=== PATIENT | male | born 1950 | race Caucasian/White ===

== ENCOUNTER 2020-10-22 18:06 | Inpatient (IN) | payer BC, OTHER ==
[~2020-10-22] VITALS: Ht 182.9 cm; Wt 99.3 kg
[2020-10-22] MEDS ORDERED: IV NS 0.9% 1,000 ML BAG IV ONE (18:30)
[2020-10-22 19:06] LABS: BASOPHILS % (AUTO) 0.4 % (0.0-2.0); HEMATOCRIT 40 % (39-51); HEMOGLOBIN 13.1 g/dL (13.5-17.5); LYMPHOCYTES # (AUTO) 2.1 K/uL (0.8-4.8); LYMPHOCYTES % (AUTO) 17.8 % (20.0-44.0); MEAN CORPUSCULAR HGB CONC 33 g/dl (31.0-36.0); MEAN CORPUSCULAR VOLUME 88 fL (80-96); MONOCYTES # (AUTO) 1.6 K/uL (0.1-1.30); MONOCYTES % (AUTO) 13.5 % (2.0-12.0); NEUTROPHILS # (AUTO) 7.8 K/uL (1.8-8.9); NEUTROPHILS % (AUTO) 67.3 % (43.0-81.0); PLATELET COUNT (AUTO) 186 K/uL (150-450); RED BLOOD CELL COUNT(AUTO) 4.51 MIL/uL (4.5-6.0); WHITE BLOOD COUNT (AUTO) 11.6 K/uL (4.3-11.0)
[2020-10-22 19:41] LABS: CALCIUM, SERUM 8.2 mg/dL (8.5-10.1); CARBON DIOXIDE 29 mmol/L (21-32); CHLORIDE 104 mmol/L (98-107); CREATININE 0.6 mg/dL (0.6-1.3); GLUCOSE 98 mg/dL (74-106); POTASSIUM 3.9 mmol/L (3.5-5.1); SODIUM SERUM 139 mmol/L (136-145); UREA NITROGEN, BLOOD 27 mg/dL (7-18)
[2020-10-22 19:46] LABS: ALANINE AMINOTRANSFERASE 41 U/L (12-78); ALBUMIN 2.7 g/dL (3.4-5.0); ALKALINE PHOSPHATASE 144 U/L (46-116); ASPARTATE AMINOTRANSFERASE 56 U/L (15-37); BILIRUBIN,DIRECT 0.4 mg/dL (0.0-0.2); LIPASE 65 U/L (73-393); TOTAL PROTEIN, SERUM 6.4 g/dL (6.4-8.2)
[2020-10-22] MEDS ORDERED: IOHEXOL-300 100 ML VIAL IV ONE (19:48)
[2020-10-22] MEDS ORDERED: IV NS 0.9% 250 ML IV ONE (19:48)
[2020-10-22] MEDS ORDERED: CT SWABBABLE VALVE TRANS SET 1 EA INFUS.SET MC ONE (19:48)
--- NOTE | 2020-10-22 19:50 | NUR ---
CALLED [facility], PAGED DR BROWN
[2020-10-22] MEDS ORDERED: PIPERACILLIN /TAZOBACTAM 3.375 G in IV D5W 50 ML IV ONE (20:00)
[2020-10-22] MEDS ORDERED: IV NS 0.9% 1,000 ML IV ONE (20:30)
[2020-10-22] MEDS ORDERED: ACETAMINOPHEN 650 MG/SUPP.RECT RC PRN (20:30)
[2020-10-22] MEDS ORDERED: ONDANSETRON HCL/PF 4 MG/2 ML VIAL IVP PRN (20:30)
[2020-10-22] MEDS ORDERED: Z GUARD REMEDY 2 OZ OINT TP PRN (20:30)
[2020-10-22] MEDS ORDERED: PIPERACILLIN /TAZOBACTAM 3.375 G VIAL IV ONE (21:16)
--- NOTE | 2020-10-22 22:20 | NUR ---
unable to give report at this time, will call back
[2020-10-22] MEDS: ENOXAPARIN SODIUM 40 MG/0.4 ML DISP.SYRIN SQ SCH (22:30)
--- NOTE | 2020-10-22 22:31 | NUR ---
, herman [phone]
[2020-10-22] MEDS ORDERED: ENOXAPARIN SODIUM 40 MG/0.4 ML DISP.SYRIN SQ ONE (22:33)
--- NOTE | 2020-10-22 22:40 | NUR ---
ACCOUNT GENERAL MANAGER NOTE RECEIVED PATIENT VIA [place]. PATIENT IS ON RA. BREATHING NORMAL NO SOB NOTED. RESPIRATIONS ARE EVEN AND UNLABORED AT REST. NO C/O PAIN AT THIS TIME. NO APPARENT DISTRESS. IV ACCESS IN RAC#18. INITIAL PHYSICAL ASSESSMENT COMPLETED AT THIS TIME. SKIN ASSESSMENT COMPLETE, PATIENT NOTED WITH MULTIPLE SKIN ISSUES, SEE FLOW SHEET. MENTALLY IMPAIRED TEACHER OBTAINED VITALS AND COMPLETED BELONGING LIST. BED IS LOW AND LOCKED, HOB ELEVATED IN SEMI FOWLERS, SIDE RAILS UP X2, CALL LIGHT WITHIN REACH. WILL CONT TO MONITOR FOR ROSA MARIA. Addendum: 10/23/20 at 0331 by ANDREA JAMES RN TIME 1017
--- NOTE | 2020-10-22 22:46 | NUR ---
report given to trung lobo. pt transported in stable condition per acls protocol
[2020-10-22 23:00] VITALS: BP 110/63
[2020-10-23] MEDS ORDERED: PIPERACILLIN /TAZOBACTAM 3.375 G in IV D5W 50 ML IV SCH
[2020-10-23] MEDS ORDERED: PIPERACILLIN /TAZOBACTAM 3.375 G VIAL IV ONE ×2 (00:02→06:15)
[2020-10-23] MEDS: IV 1/2NS 1000 ML 1,000 ML IV PRN ×2 (00:03→18:23)
[2020-10-23] MEDS: ZOSYN IVPB 3.375 G in IV D5W 50ml IV SCH ×2 (00:03→06:16)
[2020-10-23 00:43] LABS: BILIRUBIN,URINE Negative (NEGATIVE); COLOR,URINE YELLOW (YELLOW); LEUKOCYTE ESTERASE ,URINE Negative (NEGATIVE); NITRITE, URINE Negative (NEGATIVE); PROTEIN,URINE Negative (NEGATIVE); UGLUCOSE Negative (NEGATIVE); UROBILINOGEN,URINE 0.2 EU/dL (0.2)
[2020-10-23 01:00] VITALS: BP 114/66
[2020-10-23 05:00] VITALS: BP 107/62
[2020-10-23 06:56] LABS: BASOPHILS % (AUTO) 0.3 % (0.0-2.0); EOSINOPHILS % (AUTO) 1.5 % (0.0-6.0); HEMATOCRIT 38 % (39-51); HEMOGLOBIN 12.7 g/dL (13.5-17.5); LYMPHOCYTES # (AUTO) 1.6 K/uL (0.8-4.8); LYMPHOCYTES % (AUTO) 17.4 % (20.0-44.0); MEAN CORPUSCULAR HGB CONC 33 g/dl (31.0-36.0); MEAN CORPUSCULAR VOLUME 89 fL (80-96); MONOCYTES # (AUTO) 1.1 K/uL (0.1-1.30); MONOCYTES % (AUTO) 12.1 % (2.0-12.0); NEUTROPHILS # (AUTO) 6.5 K/uL (1.8-8.9); NEUTROPHILS % (AUTO) 68.7 % (43.0-81.0); PLATELET COUNT (AUTO) 159 K/uL (150-450); RED BLOOD CELL COUNT(AUTO) 4.29 MIL/uL (4.5-6.0); WHITE BLOOD COUNT (AUTO) 9.4 K/uL (4.3-11.0)
--- NOTE | 2020-10-23 07:21 | NUR ---
RN NOTES No changes noted during shift. on RA. breathing normal no SOB noted. Respiration even non labored. Skin warn and dry to touch. Vital signs remained WNL. RT arm IV intact fluid running as ordered. Denies any pain or discomfort. All safety measures in place, call light within reach. endorse to AM nurse for aliza.
[2020-10-23 07:29] LABS: ALBUMIN 2.6 g/dL (3.4-5.0); BILIRUBIN,TOTAL 1.1 mg/dL (0.2-1.0); CREATININE 0.6 mg/dL (0.6-1.3); MAGNESIUM 2.2 mg/dL (1.8-2.4); PHOSPHORUS 3.6 mg/dL (2.5-4.9); POTASSIUM 3.6 mmol/L (3.5-5.1); TOTAL PROTEIN, SERUM 6.2 g/dL (6.4-8.2)
--- NOTE | 2020-10-23 07:30 | NUR ---
RN OPENING NOTES Patient is alert and oriented. Breathing even and unlabored, patient is on room air with 02 saturation of 95%. No c/o pain or discomfort. Patient is NPO per report. Iv fluids running to right ac 18 gauze, yu well. Will continue to monitor. Call light with in reach.
[2020-10-23 07:59] LABS: THYROID STIMULATING HORMONE 2.452 uIU/mL (0.358-3.74)
[2020-10-23 08:00] VITALS: BP 99/62
[2020-10-23] MEDS ORDERED: CARB1TAB24 PO (08:46)
[2020-10-23] MEDS ORDERED: TAMS-12 PO (08:46)
[2020-10-23] MEDS ORDERED: RIVA10TA PO (09:03)
[2020-10-23] MEDS: PANTOPRAZOLE 40 MG VIAL IV SCH (09:19)
--- NOTE | 2020-10-23 09:43 | NUR ---
WOUND CARE CONSULT: REVIEWED CHART, NURSING DOCUMENTATION AND PHOTOS WHICH INDICATE AREAS OF DISCOLORATION AND SCARRING TO SACRUM, PRESENT ON ADMISSION. RECOMMENDATIONS MADE FOR SKIN PROTECTION AND DISCUSSED WITH NURSING STAFF. MD IN AGREEMENT WITH PLAN OF CARE.
[2020-10-23] MEDS: PIPERACILLIN /TAZOBACTAM 3.375 G in IV D5W 100 ML IV SCH ×2 (13:34→22:27)
[2020-10-23 16:00] VITALS: BP 114/70
--- NOTE | 2020-10-23 19:33 | NUR ---
RN CLOSING NOTES Patient is alert and oriented. Breathing even and unlabored, patient is on room air with 02 saturation of 98%. No c/o pain or discomfort. HIDA scan done with positive results. Per WAREHOUSE SPECIALIST patient will not be having surgery today due to being on xarelto at [facility]. Per patient last xarelot taken on 10/21/20 in pm. WAREHOUSE SPECIALIST kerri ordered diet for patient. Iv fluids running to right ac 18 gauze, yu well. Will continue to monitor. Call light with in reach.Endorsed to next shift for aliza.
[2020-10-23 21:00] VITALS: BP 102/59
[2020-10-23] MEDS: TAMSULOSIN 0.4 MG CAP.SR.24H PO SCH (22:27)
[2020-10-23] MEDS: ENOXAPARIN SODIUM 40 MG/0.4 ML DISP.SYRIN SQ SCH (22:55)
[2020-10-24 05:00] VITALS: BP 108/62
[2020-10-24] MEDS: PIPERACILLIN /TAZOBACTAM 3.375 G in IV D5W 100 ML IV SCH ×3 (06:35→20:46)
[2020-10-24] MEDS: IV 1/2NS 1000 ML 1,000 ML IV PRN ×2 (06:43→08:57)
[2020-10-24 07:18] LABS: BASOPHILS % (AUTO) 0.5 % (0.0-2.0); HEMATOCRIT 37 % (39-51); HEMOGLOBIN 12.3 g/dL (13.5-17.5); LYMPHOCYTES # (AUTO) 1.5 K/uL (0.8-4.8); LYMPHOCYTES % (AUTO) 17.1 % (20.0-44.0); MEAN CORPUSCULAR HGB CONC 34 g/dl (31.0-36.0); MEAN CORPUSCULAR VOLUME 89 fL (80-96); MONOCYTES % (AUTO) 11.4 % (2.0-12.0); PLATELET COUNT (AUTO) 189 K/uL (150-450); RED BLOOD CELL COUNT(AUTO) 4.12 MIL/uL (4.5-6.0); WHITE BLOOD COUNT (AUTO) 8.6 K/uL (4.3-11.0)
[2020-10-24 07:26] LABS: CALCIUM, SERUM 7.9 mg/dL (8.5-10.1); CREATININE 0.6 mg/dL (0.6-1.3); POTASSIUM 3.6 mmol/L (3.5-5.1)
--- NOTE | 2020-10-24 07:30 | NUR ---
RN NOTE PATIENT AWAKE IN BED ALERT AND ORIENTED X4, ABLE TO VERBALIZE NEEDS, ON ROOM AIR O2 SAT OF 98%, ON LOW FAT DIET/LOW CHOLESTEROL, WITH RIGHT AC 1/2 NS @75CC/HR PATENT FLUSHING WELL. BED WHEELS LOCK, SAFETY MEASURES OBSERVED, BED ALARM ON, CALL LIGHT WITHIN REACH, WILL CONTINUE TO MONITOR.
--- NOTE | 2020-10-24 07:56 | NUR ---
RN NOTE RECEIVE PATIENT FROM ER VIA [facility], AMBULATED FROM THE [place] TO THE BED STEADY GAIT, ADMITTING PATIENT AT THIS TIME, BODY CHECK DONE, SKIN INTACT. Addendum: 10/24/20 at 0758 by DRAKE CHEATHAM RN ERROR WRONG PATIENT
--- NOTE | 2020-10-24 07:58 | NUR ---
RN NOTE PATIENT AM LAB BLOOD GLUCOSE LEVEL OF 70, RE CHECK BLOOD GLUCOSE LEVEL USING ACCU CHECK 86. PATIENT RESPONSIVE VTS WNL, WILL CONTINUE TO MONITOR.
--- NOTE | 2020-10-24 08:00 | NUR ---
RN NOTE BREAKFAST TRAY AT BEDSIDE, ASSISTED PATIENT TO EAT.
[2020-10-24] MEDS: PANTOPRAZOLE 40 MG VIAL IV SCH (08:55)
--- NOTE | 2020-10-24 09:26 | NUR ---
RN NOTE PATIENT SEEN BY DR. DURAN, UPDATED MD REGARDING PATIENT CURRENT CONDITION, NO NEW ORDERS AT THIS TIME.
[2020-10-24] MEDS: ENOXAPARIN SODIUM 100 MG/ML DISP.SYRIN SQ SCH ×2 (10:45→20:48)
[2020-10-24 13:00] VITALS: BP 111/67
--- NOTE | 2020-10-24 18:39 | NUR ---
RN NOTE PATIENT AWAKE IN BED ALERT AND ORIENTED X4, ABLE TO VERBALIZE NEEDS, ON ROOM AIR O2 SAT OF 98%, ON LOW FAT DIET/LOW CHOLESTEROL, WITH RIGHT AC 1/2 NS @75CC/HR PATENT FLUSHING WELL. NPO AT THIS TIME ORDERED, HOLD LOVENOX, BED WHEELS LOCK, SAFETY MEASURES OBSERVED, BED ALARM ON, CALL LIGHT WITHIN REACH, WILL CONTINUE TO MONITOR. WILL ENDORSE TO NOC SHIFT.
--- NOTE | 2020-10-24 19:00 | NUR ---
RN NOTE RECEIVED PATIENT IN BED, AO X 4, IN NO S/SX OF ACUTE DISTRESS AT THIS TIME BREATHING EVEN AND UNLABORED, SATURATION AT 96% ON ROOM AIR, HR IS 75. NOTED IV SITE AT R WRIST 18G, PATENT AND FLUSHING WELL, NO S/S OF INFECTION OR INFILTRATION, WITH IV FLUID OF NS INFUSING AT 75 ML/HR. PATIENT SCHEDULE FOR GALL BLADDER SURGERY IN AM, NPO STATUS MAINTAINED. SAFETY MEASURES IMPLEMENTED. PATIENT BED ALARM IS ON. HEAD OF BED ELEVATED. BED IS LOCKED, IN LOWEST POSITION AND SIDE RAILS UP. CALL LIGHT WITHIN REACH OF THE PATIENT. WILL CONTINUE TO MONITOR AND REASSESS FOR ANY CHANGES. Addendum: 10/25/20 at 0407 by LUNA DECKER RN IV FLUID 1/2 NS AT 75 ML/HR
[2020-10-24 20:00] VITALS: BP 151/80
[2020-10-24] MEDS: TAMSULOSIN 0.4 MG CAP.SR.24H PO SCH (21:00)
[2020-10-25] MEDS: PIPERACILLIN /TAZOBACTAM 3.375 G in IV D5W 100 ML IV SCH ×3 (05:27→21:21)
--- NOTE | 2020-10-25 07:07 | NUR ---
RN NOTE PATIENT AWAKE IN BED ALERT AND ORIENTED X4, ABLE TO VERBALIZE NEEDS, ON ROOM AIR O2 SAT OF 97%, ON LOW FAT DIET/LOW CHOLESTEROL, WITH RIGHT AC 1/2 NS @75CC/HR PATENT FLUSHING WELL. NPO AT THIS TIME ORDERED, WILL CLARIFY NPO ORDER. BED WHEELS LOCK, SAFETY MEASURES OBSERVED, BED ALARM ON, CALL LIGHT WITHIN REACH, WILL CONTINUE TO MONITOR..
[2020-10-25 08:00] VITALS: BP 101/62
[2020-10-25] MEDS: IV 1/2NS 1000 ML 1,000 ML IV PRN ×2 (08:12→23:08)
[2020-10-25] MEDS: PANTOPRAZOLE 40 MG TABLET.DR PO SCH (08:39)
--- NOTE | 2020-10-25 08:50 | NUR ---
RN NOTE FOLLOW UP WITH REMELT WORKER CORAL REGARDING SURGERY SCHEDULE, PER REMELT WORKER CORAL , DR. BARNHART WILL DECIDE IF SURGERY WILL BE DONE TODAY , KEEP PATIENT ON NPO AND HOLD LOVENOX PER REMELT WORKER CORAL..
[2020-10-25] MEDS: ENOXAPARIN SODIUM 100 MG/ML DISP.SYRIN SQ SCH ×2 (08:54→21:22)
--- NOTE | 2020-10-25 09:52 | NUR ---
RN NOTES INFORMED AND VARIED PATIENT REGARDING SURGERY OF LAPAROSCOPIC CHOLECYSTECTOMY, POSSIBLE CHOLANGIOGRAM, AND POSSIBLE LIVER BIOPSY. CONSENT VARIED WITH PATIENT AND PLACED IN FOLDER.
[2020-10-25 10:07] LABS: BASOPHILS % (AUTO) 0.5 % (0.0-2.0); EOSINOPHILS % (AUTO) 2.3 % (0.0-6.0); HEMATOCRIT 38 % (39-51); HEMOGLOBIN 12.5 g/dL (13.5-17.5); LYMPHOCYTES # (AUTO) 1.5 K/uL (0.8-4.8); LYMPHOCYTES % (AUTO) 18.6 % (20.0-44.0); MEAN CORPUSCULAR HGB CONC 33 g/dl (31.0-36.0); MEAN CORPUSCULAR VOLUME 89 fL (80-96); MONOCYTES # (AUTO) 0.9 K/uL (0.1-1.30); MONOCYTES % (AUTO) 10.5 % (2.0-12.0); NEUTROPHILS # (AUTO) 5.6 K/uL (1.8-8.9); NEUTROPHILS % (AUTO) 68.1 % (43.0-81.0); PLATELET COUNT (AUTO) 208 K/uL (150-450); WHITE BLOOD COUNT (AUTO) 8.2 K/uL (4.3-11.0)
[2020-10-25 10:13] LABS: CALCIUM, SERUM 8.5 mg/dL (8.5-10.1); CREATININE 0.6 mg/dL (0.6-1.3); POTASSIUM 3.9 mmol/L (3.5-5.1)
[2020-10-25] MEDS ORDERED: ANESTHESIA TRAY IN PYXIS 1 EA TRAY MC ONE (10:42)
[2020-10-25] MEDS ORDERED: LIDOCAINE 1% INJ 50 ML MDV IJ ONE (10:42)
[2020-10-25] MEDS ORDERED: BUPIVACAINE MPF 0.5% W/EPI INJ 30 ML VIAL ONE (10:42)
[2020-10-25] MEDS ORDERED: ROCURONIUM BROMIDE 50 MG/5 ML ONE ×2 (10:46→10:56)
[2020-10-25] MEDS ORDERED: HYDROMORPHONE INJ 2 MG/ML DISP.SYRIN ONE (10:46)
[2020-10-25] MEDS: CARBIDOPA/LEVODOPA 25/250 MG 1 UDTAB PO SCH ×4 (11:00→21:00)
--- NOTE | 2020-10-25 11:01 | NUR ---
RN NOTE PATIENT PICKED UP FOR SURGERY, VTS WNL, PATIENT HAS BEEN NPO SINCE 10/24/20 1800, LOVENOX ON HOLD ORDERED. PRE OP CHECKLIST DONE, UNABLE SANTANA ADMINISTER CARVIDOPA AT THIS TIME.
[2020-10-25] MEDS ORDERED: DESFLURANE 240 ML BOTTLE IH ONE (12:33)
[2020-10-25] MEDS ORDERED: HYDROMORPHONE 1 MG/1 ML DISP.SYRIN ONE ×2 (13:23→13:46)
--- NOTE | 2020-10-25 14:31 | NUR ---
RN NOTES RECEIVED PATIENT FROM OR, POST-OP SURGERY. RECIEVED RESTING AND RESPONSIVE. PATIENT BREATHING EVEN AND UNLABORED, NO SOB NOTED. PATIENT CURRENTLY ON 3L/MIN NASAL CANULA. VITALS BP: 114/71, HR:64, RR: 20, O2 SATURATION: 99%. PATIENT NOTED WITH TIMOTHY-CALVILLO DRAIN. DRAINAGE NOTED. START ON CLEAR LIQUID WHEN MORE AWAKE, ASPIRATION PRECAUTION PER MD. HOB ELEVATED, CALL LIGHT WITHIN REACH.
--- NOTE | 2020-10-25 15:55 | NUR ---
RN NOTE PATIENT ASLEEP BUT ABLE TO BE WAKEN UP, DROWSY AT THIS TIME, CARBIDOPA/LEVODOPA NOT GIVEN, MD AWARE.
[2020-10-25] MEDS: MORPHINE SULFATE INJ 2 MG/ML DISP.SYRIN IV PRN ×2 (18:24→23:07)
--- NOTE | 2020-10-25 18:56 | NUR ---
RN NOTE PATIENT ALERT ANDD ORIENTED X4. REFUSED CARVIDOPA/LEVODOPA, CALLED [facility] TO NOTIFY DR DURAN, EPIC WAS NOT ABLE TO REACH MD.
--- NOTE | 2020-10-25 19:03 | NUR ---
RN NOTE PATIENT AWAKE IN BED ALERT AND ORIENTED X4, ABLE TO VERBALIZE NEEDS, ON O2 VIA NC AT 3LPM SAT OF 97%, S/P LAPAROSCOPIC CHOLECYSTECTOMY, RIGHT ABDOMEN SURGICAL SITE WITH TIMOTHY-PRAT DRAIN, 100 CC RED BLOODY WITH RIGHT AC 1/2 NS @75CC/HR PATENT FLUSHING WELL. ASPIRATION PRECAUTION BED WHEELS LOCK, SAFETY MEASURES OBSERVED, BED ALARM ON, CALL LIGHT WITHIN REACH, WILL CONTINUE TO MONITOR. WILL ENDORSE TO NOC SHIFT.
--- NOTE | 2020-10-25 19:30 | NUR ---
RN OPENING NOTE PATIENT IN BED, EYES CLOSED, EASILY AWAKENED. PATIENT IS A/O X 4 ABLE TO MAKE NEEDS KNOWN. RECEIVED WITH 3 L OF O2 SUPPLEMENTATION. RN REPORTS THAT PATIENT STATES HE IS NOT COMFORTABLE WITH DRINKING PO MEDICATIONS AT THIS TIME. PATIENT HAS A R WRIST 18 G 1/2 NS RUNNING AT 75 ML/HR. PATIENT IS OBSERVED TO HAVE A REBECA DRAIN WITH SEROSANGUINEOUS DRAIN. SAFETY MEASURES IN PLACE: BED LOCKED AND IN LOWEST POSITION, CALL LIGHT WITHIN REACH, SIDE RAILS UP. WILL MONITOR PATIENT CLOSELY.
[2020-10-25 20:00] VITALS: BP 128/65
--- NOTE | 2020-10-25 21:00 | NUR ---
RN NOTE PATIENT NOT COMFORTABLE TAKING PO MEDS. 2100 AND 2200 PO MEDS NOT GIVEN.
[2020-10-25] MEDS: TAMSULOSIN 0.4 MG CAP.SR.24H PO SCH (21:28)
--- NOTE | 2020-10-25 23:10 | NUR ---
RN NOTE PATIENT GIVEN MORPHINE FOR R ABDOMINAL PAIN 11/22
--- NOTE | 2020-10-26 | NUR ---
RN NOTE PATIENT STATES HE WANTS TO TRY DRINKING SOME WATER, EVALUATED PATIENT'S SWALLOWING ABILITY, NO COUGH AFTER THE SIP AND PATIENT ABLE TO CLENCH TEETH. PATIENT VERBALIZES THAT "I AM COMFORTABLE WITH SWALLOWING, MY THROAT IS FEELING BETTER". PATIENT PUT BACK ON CLEAR LIQUID DIET. CHARGE NURSE AWARE.
[2020-10-26 04:00] VITALS: BP 100/58
[2020-10-26] MEDS: PIPERACILLIN /TAZOBACTAM 3.375 G in IV D5W 100 ML IV SCH ×3 (04:49→21:19)
[2020-10-26] MEDS: CARBIDOPA/LEVODOPA 25/250 MG 1 UDTAB PO SCH ×5 (06:17→21:19)
--- NOTE | 2020-10-26 06:55 | NUR ---
RN CLOSING NOTE PATIENT IN BED, AWAKE. PATIENT IS A/O X 4 ABLE TO MAKE NEEDS KNOWN. PATIENT NOW ON 2L OF O2 TOLERATING WELL AND COMFORTABLE. PATIENT HAS A R WRIST 18 G WITH ONGOING 1/2 NS AT 75 ML/HR. PATIENT IS OBSERVED TO HAVE A REBECA DRAIN WITH CLEAR/PINK DRAINAGE, 90 ML DRAINED DURING THE SHIFT. SAFETY MEASURES IN PLACE: BED LOCKED AND IN LOWEST POSITION, CALL LIGHT WITHIN REACH, SIDE RAILS UP. WILL ENDORSE TO DAY SHIFT NURSE FOR ROSA MARIA.
[2020-10-26 07:17] LABS: BASOPHILS % (AUTO) 0.1 % (0.0-2.0); HEMATOCRIT 37 % (39-51); HEMOGLOBIN 12.6 g/dL (13.5-17.5); LYMPHOCYTES # (AUTO) 1.3 K/uL (0.8-4.8); LYMPHOCYTES % (AUTO) 11.8 % (20.0-44.0); MEAN CORPUSCULAR HGB CONC 34 g/dl (31.0-36.0); MEAN CORPUSCULAR VOLUME 89 fL (80-96); MONOCYTES # (AUTO) 0.9 K/uL (0.1-1.30); MONOCYTES % (AUTO) 8.6 % (2.0-12.0); NEUTROPHILS # (AUTO) 8.5 K/uL (1.8-8.9); NEUTROPHILS % (AUTO) 79.5 % (43.0-81.0); PLATELET COUNT (AUTO) 239 K/uL (150-450); WHITE BLOOD COUNT (AUTO) 10.7 K/uL (4.3-11.0)
--- NOTE | 2020-10-26 07:20 | NUR ---
RN NOTE PATIENT AWAKE IN BED ALERT AND ORIENTED X3, ABLE TO VERBALIZE NEEDS, ON O2 VIA NC AT 3LPM SAT OF 97%, S/P LAPAROSCOPIC CHOLECYSTECTOMY, RIGHT ABDOMEN SURGICAL SITE WITH TIMOTHY-PRAT DRAIN, 100 CC RED BLOODY WITH RIGHT AC 1/2 NS @75CC/HR PATENT FLUSHING WELL. ON CLEAR LIQUID DIET TOLERATING WELL, ASPIRATION PRECAUTION BED WHEELS LOCK, SAFETY MEASURES OBSERVED, BED ALARM ON, CALL LIGHT WITHIN REACH, WILL CONTINUE TO MONITOR..
[2020-10-26 07:41] LABS: CALCIUM, SERUM 8.5 mg/dL (8.5-10.1); CREATININE 0.7 mg/dL (0.6-1.3); POTASSIUM 4.1 mmol/L (3.5-5.1)
[2020-10-26 08:00] VITALS: BP 108/61
[2020-10-26] MEDS: PANTOPRAZOLE 40 MG TABLET.DR PO SCH (08:06)
--- NOTE | 2020-10-26 08:33 | NUR ---
RN NOTE PATIENT SEEN BY DR. DURAN, ANNA BRAN POST OP, MD AWARE REGARDING PATIENT CURRENT CONDITION.
[2020-10-26] MEDS: ENOXAPARIN SODIUM 100 MG/ML DISP.SYRIN SQ SCH ×2 (08:34→21:32)
[2020-10-26] MEDS: IV 1/2NS 1000 ML 1,000 ML IV PRN (11:56)
--- NOTE | 2020-10-26 14:15 | NUR ---
RN NOTE PATIENT SEEN BY HUMAN PERFORMANCE PROFESSOR CORAL COVERING FOR DR. BARNHART ABDOMINAL DRESSING CHANGED DONE AT BEDSIDE. HUMAN PERFORMANCE PROFESSOR OK TO START ON SOFT DIET AND START ON TRAMADOL 50 MG PRN Q6H FOR BREAKTHROUGH PAIN.
[2020-10-26] MEDS ORDERED: TRAMADOL HCL 50 MG TABLET PO PRN (14:30)
[2020-10-26] MEDS: RIVAROXABAN 10 MG TABLET PO SCH (17:27)
--- NOTE | 2020-10-26 18:53 | NUR ---
RN NOTE PATIENT AWAKE IN BED ALERT AND ORIENTED X3, ABLE TO VERBALIZE NEEDS, ON O2 VIA NC AT 2LPM SAT OF 97%, S/P LAPAROSCOPIC CHOLECYSTECTOMY, RIGHT ABDOMEN SURGICAL SITE WITH TIMOTHY-PRAT DRAIN, 100 CC RED BLOODY DRAINAGE WITH 2 ABDOMINAL INCISION SITE NO BLEEDING NOTED, AFEBRILE AT THIS TIME, WITH RIGHT AC 1/2 NS @75CC/HR PATENT FLUSHING WELL. ON CLEAR LIQUID DIET TOLERATING WELL, ASPIRATION PRECAUTION BED WHEELS LOCK, SAFETY MEASURES OBSERVED, BED ALARM ON, CALL LIGHT WITHIN REACH, WILL CONTINUE TO MONITOR.WILL ENDORSE TO NOC SHIFT.
[2020-10-26] MEDS: MORPHINE SULFATE INJ 2 MG/ML DISP.SYRIN IV PRN (19:34)
[2020-10-26 20:00] VITALS: BP 104/58
[2020-10-26] MEDS: TAMSULOSIN 0.4 MG CAP.SR.24H PO SCH (21:19)
[2020-10-27 04:00] VITALS: BP 95/60
[2020-10-27] MEDS: PIPERACILLIN /TAZOBACTAM 3.375 G in IV D5W 100 ML IV SCH ×3 (05:42→20:40)
[2020-10-27] MEDS: CARBIDOPA/LEVODOPA 25/250 MG 1 UDTAB PO SCH ×5 (06:01→20:40)
[2020-10-27 06:23] LABS: BASOPHILS % (AUTO) 0.6 % (0.0-2.0); EOSINOPHILS % (AUTO) 1.5 % (0.0-6.0); HEMATOCRIT 36 % (39-51); HEMOGLOBIN 12.1 g/dL (13.5-17.5); LYMPHOCYTES # (AUTO) 1.5 K/uL (0.8-4.8); LYMPHOCYTES % (AUTO) 20.4 % (20.0-44.0); MEAN CORPUSCULAR HGB CONC 34 g/dl (31.0-36.0); MEAN CORPUSCULAR VOLUME 88 fL (80-96); MONOCYTES # (AUTO) 0.9 K/uL (0.1-1.30); MONOCYTES % (AUTO) 11.3 % (2.0-12.0); NEUTROPHILS % (AUTO) 66.2 % (43.0-81.0); PLATELET COUNT (AUTO) 212 K/uL (150-450); RED BLOOD CELL COUNT(AUTO) 4.06 MIL/uL (4.5-6.0); WHITE BLOOD COUNT (AUTO) 7.6 K/uL (4.3-11.0)
[2020-10-27 06:46] LABS: CALCIUM, SERUM 8.2 mg/dL (8.5-10.1); CREATININE 0.7 mg/dL (0.6-1.3); POTASSIUM 3.6 mmol/L (3.5-5.1)
--- NOTE | 2020-10-27 07:05 | NUR ---
RN CLOSING NOTES PT REMAINS IN BED, ALL NEEDS ATTENDED. DENIES PAIN. PT REFUSED TO BE TURNED AND LINENS CHANGED, DESPITE EDUCATION OF IMPORTANCE X2. PT STILL REFUSED. AT THIS TIME, NO S/S OF DISTRESS NOTED. IN STABLE CONDITION, ALL ORDERS CARRIED OUT. SAFETY MEASURES IN PLACE. HOB ELEVATED. SIDE RAILS UP X2. BED LOCKED IN LOWEST POSITION. ENDORSED CARE TO DAY SHIFT RN FOR CONTINUATION OF CARE
--- NOTE | 2020-10-27 07:28 | NUR ---
RN OPENING NOTE Pt is asleep, arousable to stimuli, no respiratory distress, no SOB. On hydration 1/ NS 75cc/hr. Safety precautions implemented, bed locked in lowest position, call light within reach.
[2020-10-27 08:00] VITALS: BP_SYST 110; BP_DIAS 60; BP_DIAS 65
[2020-10-27] MEDS: PANTOPRAZOLE 40 MG TABLET.DR PO SCH (08:21)
[2020-10-27] MEDS: ENOXAPARIN SODIUM 100 MG/ML DISP.SYRIN SQ SCH (08:22)
--- NOTE | 2020-10-27 10:30 | NUR ---
RN NOTE Pt seen by Sx team, removed REBECA drain-pressure dressing applied. Will continue to monitor. No s/sx of bleeding noted.
--- NOTE | 2020-10-27 14:40 | NUR ---
FOLLOW UP WITH SNF ,STILL WAITING FOR AUTHORIZATION.
--- NOTE | 2020-10-27 16:14 | NUR ---
PER LORETTA GOODMAN STILL NO AUTHORIZATION WILL BE DISCHARGE TOMORROW.
[2020-10-27] MEDS: RIVAROXABAN 10 MG TABLET PO SCH (16:32)
[2020-10-27] MEDS: IV 1/2NS 1000 ML 1,000 ML IV PRN (18:11)
--- NOTE | 2020-10-27 18:45 | NUR ---
RN CLOSING NOTE Pt is A/O X 4, no respiratory distress, no SOB. On 2 L via NC satting at 94-95%. IV in place, running Hydration, all due meds given as ordered. Refused to turned and repositioned. Aware of risks and benefits. Has pressure dressing s/p REBECA drainage removal. Safety precautions implemented, bed locked in lowest position, call light within reach.
[2020-10-27 20:00] VITALS: BP 99/52
[2020-10-27] MEDS: TAMSULOSIN 0.4 MG CAP.SR.24H PO SCH (21:19)
--- NOTE | 2020-10-27 22:30 | NUR ---
RN NOTE RECEIVED REPORT FROM RN FOR CONTINUITY OF CARE. PT IN BED, AWAKE, A/OX4, DENIES ANY PAIN @THIS TIME. ON O2 @2LPM VIA NC. NO SOB. IV SITE R-WRIST #18 INTACT/PATENT, RUNNING 1/2NS @75ML/HR. PT IN NO ACUTE DISTRESS. SAFETY MEASURES IN PLACE, BED IN LOWEST LOCKED POSITION, S/R UPX2, CALL LIGHT AND TABLE WITHIN REACH. WILL CONT TO MONITOR.
--- NOTE | 2020-10-27 22:30 | NUR ---
RN NOTES, ENDORSED PATIENT TO LUZ ELENA RN FOR CONTINUATION OF CARE, PATIENT A/O WITH STABLE VITAL SINGS, NO SOB/ACUTE DISTRESS NOTED.
[2020-10-28 04:14] VITALS: BP 101/62
[2020-10-28] MEDS: PIPERACILLIN /TAZOBACTAM 3.375 G in IV D5W 100 ML IV SCH ×3 (04:17→21:09)
[2020-10-28] MEDS: PANTOPRAZOLE 40 MG TABLET.DR PO SCH (06:51)
[2020-10-28] MEDS: CARBIDOPA/LEVODOPA 25/250 MG 1 UDTAB PO SCH ×5 (06:52→21:09)
--- NOTE | 2020-10-28 07:15 | NUR ---
RN CLOSING NOTES PT RESTING IN BED, EASILY AROUSABLE TO STIMULI. A/OX4. DENIES ANY PAIN/DISCOMFORT AT THIS TIME. DENIES SOB. BREATHING EVEN/UNLABORED. IV SITE R-WRIST INTACT/PATENT. PT HAS BEEN REFUSING BEDSIDE CARE, LINEN CHANGE, OR REPOSITION. REINFORCED TEACHINGS AND SKIN PRECAUTIONS, HE VERBALIZED UNDERSTANDING, BUT CONTINUES TO REFUSE. PT IN NO ACUTE DISTRESS. ENDORSED TO NEXT SHIFT NURSE.
--- NOTE | 2020-10-28 07:30 | NUR ---
RN NOTES PT FOUND IN SEMI FOWLERS POSITION DISPLAYING NO S/S OF DISTRESS, PT ENDORSES NO PAIN AND IS BREATHING EVEN AND UNLABORED. SX SITE SHOWS NO ACTIVE BLEEDING. VSS, WILL MONITOR. SAFETY MEASURES IN PLACE BED LOCKED AND IN LOWEST POSITION, SIDE RAILS UPX2, CALL LIGHT WITHIN REACH, PT INSTRUCTED TO CALL FOR ASSISTANCE.
[2020-10-28 08:00] VITALS: BP 115/70
--- NOTE | 2020-10-28 14:19 | NUR ---
SS Consult: SS Consult requested as pt. has requested alternative placement. SW was notified by pt.s nurse, Jones that pt. does not want to return to [facility] [[id number] [place] [address]; ]. SW met with pt. bedside and pt. is A&O x 4 and makes good eye contact. Pt.s stated his mood is good and has a flat affect. Pt. seems to have shortness of breath and pauses between words. Pt. states he came to the hospital w c/o GALL STONES. The stated that he does not want to return to [facility] because they cannot address my needs. SW requested for pt. to elaborate. Pt. stated he has Hx. of Spinal Cord Injury and was seen by Neurosurgeon, Dr. Liao at the [facility]. Per pt., he was told by Dr. Liao that with enough PT he could potentially improve significantly and per pt., [facility] allegedly not provided as much therapy as he would like. CM is aware of familys request for alternative placement and has referred pt. to [facility] in [place] T# [phone] x [phone] F# [phone]. CM to f/u. LACI called and spoke with nursing who informed this SW that pt.s Dx were: Spinal Cord Injury, Paraplegia and Parkinsons Disease at time of admission. The facility also stated they provided PT intermittently from 09/07/2019-10/04/2019 and then again on 07/27/2020. The nurse could not tell me how long the period of time was in which the pt. was receiving PT. There were not OT notes, per nurse. LACI consulted with SS Director, Monse Littlejohn. no need for Neida report at this time. LACI will follow up as needed.
--- NOTE | 2020-10-28 14:50 | NUR ---
PER HUMAN RESOURCE INTERN AUTHORIZATION FROM INSURANCE STILL PENDING ,AWAITS PLACEMENT PER CM.
[2020-10-28] MEDS: RIVAROXABAN 10 MG TABLET PO SCH (17:23)
--- NOTE | 2020-10-28 19:29 | NUR ---
RN NOTE PT ENDORSED IN STABLE CONDITION FOR ROSA MARIA TO WIRE TEMPERER RN. SBAR GIVEN, ALL QUESTIONS ANSWERED.
[2020-10-28 20:00] VITALS: BP 105/54
--- NOTE | 2020-10-28 20:48 | NUR ---
RN OPENING NOTE RECD PT IN BED, PT IS A/O X4. ON 2L OF O2. NO SOB OR DISTRESS NOTED. PT ON M/S MONITORING. IV INTACT. PT DENIES PAIN. SAFETY PRECAUTIONS IN PLACE. HOB ELEVATED. SIDE RAILS UPX2 LOCKED IN LOWEST POSITION WITH BED ALARM ON. CALL LIGHT WITHIN REACH. ALL NEEDS ATTENDED AT THIS TIME. WILL CONT TO MONITOR.
[2020-10-28] MEDS: TAMSULOSIN 0.4 MG CAP.SR.24H PO SCH (21:09)
--- NOTE | 2020-10-29 00:20 | NUR ---
RN NOTE PT REFUSED BED BATH, PT REQUESTS TO SLEEP AND NOT HAVE A BED BATH UNTIL THE MORNING VERBALIZED HE WOULD LIKE TO TRY TO SLEEP
--- NOTE | 2020-10-29 00:25 | NUR ---
RN NOTE PT DOES NOT WISH TO BE TURN/REPOSITIONED AT THIS TIME, REFUSED SKIN ASSESSMENT. EXPLAINED TO PT IMPORTANCE OF CHECKING SKIN, PT INSISTS ON A LATER TIME. EDUCATED RISK AND BENEFITS TO PT IN REGARDS TO SKIN INTEGRITY, STILL REFUSES AND SAYS HE TURNS DURING THE DAY.
--- NOTE | 2020-10-29 03:59 | NUR ---
RN NOTE REPORT GIVEN TO KIMMY STOCK FOR CONTINUATION OF CARE, PT IS TO BE TRANSFERRED TO ROOM 320
[2020-10-29 04:00] VITALS: BP 115/77
[2020-10-29] MEDS: PIPERACILLIN /TAZOBACTAM 3.375 G in IV D5W 100 ML IV SCH ×2 (04:05→12:52)
--- NOTE | 2020-10-29 04:10 | NUR ---
RN NOTE PT AGREED TO LINEN CHANGE AND BED BATH ALONG WITH PT REPOSITIONED.
--- NOTE | 2020-10-29 04:31 | NUR ---
RN NOTE PT TO GO TO ROOM 328-2
--- NOTE | 2020-10-29 04:59 | NUR ---
TRANSFER NOTE PT WAS TRANSFERRED TO 3 RM 328-2 WITH ALL BELONGINGS AT BEDSIDE ACCOUNTED FOR. PT TRANSFERRED IN STABLE CONDITION GLASSES, TABLET, TABLET PEN, TRAMPOLINE TEAM COACH CORD & BLOCK, STAND, BLACK BAG, PHONE, AND PERSONAL PILLOW.
[2020-10-29 05:00] VITALS: BP 113/71
--- NOTE | 2020-10-29 05:00 | NUR ---
received from YANI alert and orientated in bed orientated to the room tv turned on per his requiste feet 3 -4 + swollen
[2020-10-29] MEDS: CARBIDOPA/LEVODOPA 25/250 MG 1 UDTAB PO SCH ×5 (06:05→21:33)
--- NOTE | 2020-10-29 07:10 | NUR ---
MS RN OPENING NOTES RECEIVED PT RESTING IN BED, PATIENT IS ALERT AND ORIENTED X 4. PATIENT DENIES ANY PAIN/DISCOMFORT AT THIS TIME. DENIES SOB. BREATHING EVEN/UNLABORED. IV SITE R-WRIST 18, INTACT/PATENT. PT HAS BEEN REFUSING BEDSIDE CARE, LINEN CHANGE, OR REPOSITION. REINFORCED TEACHINGS AND SKIN PRECAUTIONS, HE VERBALIZED UNDERSTANDING, BUT CONTINUES TO REFUSE. PT IN NO ACUTE DISTRESS. SAFETY MEASURES ENSURED WITH BED LOCKED AND AT LOWEST POSITION, CALL LIGHT AND BEDSIDE COMMODE WITHIN REACH AT ALL TIMES. WILL CONTINUE TO MONITOR PATIENT.
[2020-10-29 07:42] LABS: BASOPHILS % (AUTO) 0.3 % (0.0-2.0); EOSINOPHILS % (AUTO) 1.5 % (0.0-6.0); HEMATOCRIT 36 % (39-51); HEMOGLOBIN 12.3 g/dL (13.5-17.5); LYMPHOCYTES # (AUTO) 1.2 K/uL (0.8-4.8); LYMPHOCYTES % (AUTO) 15.7 % (20.0-44.0); MEAN CORPUSCULAR HGB CONC 34 g/dl (31.0-36.0); MEAN CORPUSCULAR VOLUME 88 fL (80-96); MONOCYTES # (AUTO) 0.9 K/uL (0.1-1.30); NEUTROPHILS # (AUTO) 5.6 K/uL (1.8-8.9); NEUTROPHILS % (AUTO) 71.5 % (43.0-81.0); PLATELET COUNT (AUTO) 232 K/uL (150-450); RED BLOOD CELL COUNT(AUTO) 4.13 MIL/uL (4.5-6.0); WHITE BLOOD COUNT (AUTO) 7.9 K/uL (4.3-11.0)
[2020-10-29 07:52] LABS: CALCIUM, SERUM 8.3 mg/dL (8.5-10.1); CREATININE 0.6 mg/dL (0.6-1.3); MAGNESIUM 2.4 mg/dL (1.8-2.4); PHOSPHORUS 3.5 mg/dL (2.5-4.9); POTASSIUM 3.6 mmol/L (3.5-5.1)
[2020-10-29 08:00] VITALS: BP 98/60
[2020-10-29] MEDS: PANTOPRAZOLE 40 MG TABLET.DR PO SCH (08:55)
--- NOTE | 2020-10-29 10:20 | NUR ---
MS RN NOTE SEEN BY DR. ANNA. WILL CONTINUE TO MONITOR PATIENT.
--- NOTE | 2020-10-29 15:01 | NUR ---
MS RN NOTE PATIENT SEEN BY RHIA LISSETH REGARDING PLACEMENT TO A SNF. PATIENT REFUSED PLACEMENT TO [facility] AND WOULD LIKE TO TRY [facility] THIS TIME. PATIENT'S IS AWARE. RHIA WILL TRY TO CONTACT FACILITY. WILL WAIT FOR ADVISE. WILL CONTINUE TO MONITOR PATIENT.
[2020-10-29 16:00] VITALS: BP 103/70
--- NOTE | 2020-10-29 16:04 | NUR ---
CM/RN Hep panel Hepatitis panel ordered as patient may require outpatient HD to be arranged. Addendum: 10/29/20 at 1607 by LISSETH CADET Please disregard pervious note., wrong patient.
[2020-10-29] MEDS: RIVAROXABAN 10 MG TABLET PO SCH (17:17)
--- NOTE | 2020-10-29 18:44 | NUR ---
MS RN CLOSING NOTES PATIENT ON BED, ALERT AND ORIENTED X 4. PATIENT DENIES ANY PAIN/DISCOMFORT AT THIS TIME. DENIES SOB. BREATHING EVEN/UNLABORED. IV SITE R-WRIST 18, INTACT/PATENT. PT HAS BEEN REFUSING BEDSIDE CARE, LINEN CHANGE, OR REPOSITION. REINFORCED TEACHINGS AND SKIN PRECAUTIONS, HE VERBALIZED UNDERSTANDING, BUT CONTINUES TO REFUSE. PT IN NO ACUTE DISTRESS. SAFETY MEASURES ENSURED WITH BED LOCKED AND AT LOWEST POSITION, CALL LIGHT AND BEDSIDE COMMODE WITHIN REACH AT ALL TIMES. WILL ENDORSE PATIENT FOR CONTINUITY OF CARE.
--- NOTE | 2020-10-29 19:30 | NUR ---
RN OPENING NOTE PATIENT IN BED, AWAKE. A/O X 4, ABLE TO MAKE NEEDS KNOWN. PATIENT ON 2 L OF O2 SATURATING WELL, BREATHING EVEN AND UNLABORED. PATIENT HAS A R WRIST 18 G SALINE LOCKED. NO COMPLAINS OF PAIN AT THIS TIME. SAFETY MEASURES IN PLACE: BED LOCKED AND IN LOWEST POSITION, CALL LIGHT WITHIN REACH, SIDE RAILS UP. WILL MONITOR PATIENT CLOSELY.
[2020-10-29 20:00] VITALS: BP 132/75
[2020-10-29] MEDS: TAMSULOSIN 0.4 MG CAP.SR.24H PO SCH (21:33)
[2020-10-30] MEDS: CARBIDOPA/LEVODOPA 25/250 MG 1 UDTAB PO SCH ×5 (07:06→21:01)
--- NOTE | 2020-10-30 07:12 | NUR ---
MS RN OPENING NOTES RECEIVED PT RESTING IN BED, PATIENT IS ALERT AND ORIENTED X 4. PATIENT DENIES ANY PAIN/DISCOMFORT AT THIS TIME. DENIES SOB. BREATHING EVEN/UNLABORED. IV SITE R-WRIST 18, INTACT/PATENT. PT IN NO ACUTE DISTRESS. SAFETY MEASURES ENSURED WITH BED LOCKED AND AT LOWEST POSITION, CALL LIGHT AND BEDSIDE TABLE WITHIN REACH AT ALL TIMES. WILL CONTINUE TO MONITOR PATIENT.
--- NOTE | 2020-10-30 07:25 | NUR ---
RN CLOSING NOTE PATIENT NOT IN ANY APPARENT DISTRESS. NO SIGNIFICANT CHANGES AT THIS TIME. SAFETY MEASURES IMPLEMENTED. DOES NOT REPORT ANY PAIN. ALL NEEDS MET AND ATTENDED, ALL ORDERS CARRIED OUT. ENDORSED TO DAY SHIFT NURSE FOR ROSA MARIA.
[2020-10-30] MEDS: PANTOPRAZOLE 40 MG TABLET.DR PO SCH (07:54)
[2020-10-30 08:00] VITALS: BP 107/65
--- NOTE | 2020-10-30 11:00 | NUR ---
MS RN NOTE PATIENT SEEN BY DR. ANNA WITH NO NEW ORDER AT THIS TIME.
[2020-10-30 16:04] VITALS: BP 105/58
[2020-10-30] MEDS: RIVAROXABAN 10 MG TABLET PO SCH (17:43)
--- NOTE | 2020-10-30 19:58 | NUR ---
MS RN OPENING NOTES Patient is awake A&Ox4. Currently laying in bed. No signs of distress. Denies any needs at this time. Patient just reports that he is stressed about finding a good placement/right [place] [facility]. Reassured that case management will handle it as there are many good SNFs in [place].
[2020-10-30 20:00] VITALS: BP 150/62
[2020-10-30] MEDS: TAMSULOSIN 0.4 MG CAP.SR.24H PO SCH (21:01)
[2020-10-31] MEDS: CARBIDOPA/LEVODOPA 25/250 MG 1 UDTAB PO SCH ×5 (06:34→21:29)
[2020-10-31] MEDS: PANTOPRAZOLE 40 MG TABLET.DR PO SCH (06:36)
--- NOTE | 2020-10-31 06:41 | NUR ---
MS RN CLOSING NOTES Patient has been A&Ox4. VSS. No signs of distress. Able to reposition upper body and buttocks, but legs repositioned and offloaded by staff. No overnight events -stable. R wrist IV patent and flushed.
[2020-10-31 06:47] LABS: BASOPHILS % (AUTO) 0.6 % (0.0-2.0); HEMATOCRIT 38 % (39-51); HEMOGLOBIN 12.5 g/dL (13.5-17.5); LYMPHOCYTES # (AUTO) 1.4 K/uL (0.8-4.8); LYMPHOCYTES % (AUTO) 20.2 % (20.0-44.0); MEAN CORPUSCULAR HGB CONC 33 g/dl (31.0-36.0); MEAN CORPUSCULAR VOLUME 89 fL (80-96); MONOCYTES # (AUTO) 0.7 K/uL (0.1-1.30); MONOCYTES % (AUTO) 10.6 % (2.0-12.0); NEUTROPHILS # (AUTO) 4.5 K/uL (1.8-8.9); NEUTROPHILS % (AUTO) 66.6 % (43.0-81.0); PLATELET COUNT (AUTO) 280 K/uL (150-450); RED BLOOD CELL COUNT(AUTO) 4.23 MIL/uL (4.5-6.0); WHITE BLOOD COUNT (AUTO) 6.8 K/uL (4.3-11.0)
[2020-10-31 07:07] LABS: CALCIUM, SERUM 8.4 mg/dL (8.5-10.1); CREATININE 0.6 mg/dL (0.6-1.3); MAGNESIUM 2.4 mg/dL (1.8-2.4); PHOSPHORUS 3.3 mg/dL (2.5-4.9); POTASSIUM 3.8 mmol/L (3.5-5.1)
--- NOTE | 2020-10-31 07:27 | NUR ---
RN OPENING NOTE- PT RESTING IN BED, PATIENT IS ALERT AND ORIENTED X 4. PATIENT DENIES ANY PAIN/DISCOMFORT AT THIS TIME. DENIES SOB. BREATHING EVEN/UNLABORED. IV SITE R-WRIST 18, INTACT/PATENT. PT IN NO ACUTE DISTRESS. SAFETY MEASURES ENSURED WITH BED LOCKED AND AT LOWEST POSITION, CALL LIGHT AND BEDSIDE TABLE WITHIN REACH AT ALL TIMES. WILL CONTINUE TO MONITOR PATIENT.
[2020-10-31 08:00] VITALS: BP 109/64
[2020-10-31 16:00] VITALS: BP 105/63
[2020-10-31] MEDS: RIVAROXABAN 10 MG TABLET PO SCH (17:39)
--- NOTE | 2020-10-31 18:48 | NUR ---
RN CLOSING NOTE- PT UNCHANGED. FOCUS ON DC. RESTING IN BED, PATIENT IS ALERT AND ORIENTED X 4. PATIENT DENIES ANY PAIN/DISCOMFORT AT THIS TIME. DENIES SOB. BREATHING EVEN/UNLABORED. IV SITE R-WRIST 18, INTACT/PATENT. PT IN NO ACUTE DISTRESS. SAFETY MEASURES ENSURED WITH BED LOCKED AND AT LOWEST POSITION, CALL LIGHT AND BEDSIDE TABLE WITHIN REACH AT ALL TIMES. WILL CONTINUE TO MONITOR PATIENT.
--- NOTE | 2020-10-31 20:36 | NUR ---
MS RN OPENING NOTES: RECEIVED PATIENT IN BED, NO COMPLAIN OF PAIN AND DISCOMFORT AT THIS TIME, BED IN LOW POSITION, CALL LIGHTS WITHIN REACH, A/O X4 ABLE TO EXPRESS NEEDS PATIENT HAS LEFT SIDED WEAKNESS ON BR USING URINAL, IV LINE AT RT WRIST#18 SL, PLACED COMFORTABLY IN BED, REMIND RESIDENT TO UISE CALL LIGHTS WHEN NEEDED ASSISTANCE,KEPT CLEAN AND DRY, WILL CONTINUE TO MONITOR.
[2020-10-31 21:00] VITALS: BP 113/75
[2020-10-31] MEDS: TAMSULOSIN 0.4 MG CAP.SR.24H PO SCH (21:29)
--- NOTE | 2020-11-01 07:01 | NUR ---
RN CLOSING NOTES: PATIENT AWAKE IN BED, NO COMPLAIN OF PAIN AND DISCOMFORT AT THIS TIME, BED IN LOW POSITION, CALL LIGHTS WITHIN REACH, NO SOB WAS OBSERVED, PATIENT IS A/0X4, PARAPLEGIA LEFT SIDE, WITH IV LINE AT R WRIST #18 SL PATIENT KEPT CLEAN AND DRY, ALL NEEDS MET, ENDORSE TO INCOMING SHIFT.
[2020-11-01] MEDS: CARBIDOPA/LEVODOPA 25/250 MG 1 UDTAB PO SCH ×5 (07:07→21:49)
[2020-11-01 08:00] VITALS: BP 108/65
[2020-11-01] MEDS: PANTOPRAZOLE 40 MG TABLET.DR PO SCH (08:01)
[2020-11-01 16:00] VITALS: BP 104/67
[2020-11-01] MEDS: RIVAROXABAN 10 MG TABLET PO SCH (18:14)
--- NOTE | 2020-11-01 18:50 | NUR ---
RN CLOSING NOTE- PT CALM, NO CHANGE FOCUS ON DC. RESTING IN BED, PATIENT IS ALERT AND ORIENTED X 4. PATIENT DENIES ANY PAIN/DISCOMFORT AT THIS TIME. DENIES SOB. BREATHING EVEN/UNLABORED. IV SITE R-WRIST 18, INTACT/PATENT. PT IN NO ACUTE DISTRESS. SAFETY MEASURES ENSURED WITH BED LOCKED AND AT LOWEST POSITION, CALL LIGHT AND BEDSIDE TABLE WITHIN REACH AT ALL TIMES. WILL CONTINUE TO MONITOR PATIENT.
--- NOTE | 2020-11-01 19:36 | NUR ---
MS RN OPENING NOTES: RECEIVED PATIENT SLEEP IN BED COMFORTABLY , BED IN LOW POSITION, CALL LIGHTS WITHIN REACH, NO COMPLAIN OF PAIN AND DISCOMFORT AT THIS TIME, PATIENT IS A/OX4 ABLE TO MAKE NEEDS KNOWN, PARAPLEGIA LEFT SIDE, ON RA NO RESP DISTRESS OBSERVED, PATIENT KEPT CLEAN AND DRY ALL NEEDS MET, WILL CONTINUE TO MONITOR..
[2020-11-01 20:17] VITALS: BP 106/68
[2020-11-01] MEDS: TAMSULOSIN 0.4 MG CAP.SR.24H PO SCH (21:49)
[2020-11-02 08:00] VITALS: BP 118/69
[2020-11-02] MEDS: CARBIDOPA/LEVODOPA 25/250 MG 1 UDTAB PO SCH ×2 (08:05→11:32)
[2020-11-02] MEDS: PANTOPRAZOLE 40 MG TABLET.DR PO SCH (08:05)
--- NOTE | 2020-11-02 08:05 | NUR ---
MS RN CLOSING NOTES: PATIENT WAS AWAKE IN BED, BED IN LOW POSITION, CALL LIGHTS WITHIN REACH, NO COMPLAIN OF PAIN AND DISCOMFORT AT THIS TIME, PATIENT KEPT CLEAN AND DRY, ALL NEEDS MET ENDORSE TO INCOMING SHIFT
--- NOTE | 2020-11-02 14:00 | NUR ---
m/s mutual fund accountant: notes received d'c order from dr. jorge to d'c pt to snf. case management making arrangement.
--- NOTE | 2020-11-02 15:00 | NUR ---
m/s jigger operator: notes ambulance here, pt for discharge to [facility]. aware and agreed per case management (yury). report given to kristian (rn snf home supervisor) for continuity of care.
--- NOTE | 2020-11-02 15:30 | NUR ---
m/s mechanical repair worker: notes discharge instructions given to pt and verbalized understanding. h/l removed with tip intact. all valuables returned. pt stable for discharge. report given to ambulance.
--- NOTE | 2020-11-02 15:45 | NUR ---
m/s saloon keeper: notes incontinent of bowel rendered. kept clean and dry. good pericare rendered.
--- NOTE | 2020-11-02 16:10 | NUR ---
m/s industrial registered nurse: discharged discharged to snf in stable condition via gurney accompanied by 2 ambulance crew with all d'c papers and valuables.
== END 2020-11-02 16:08 | DRG 418 ==
LOC: ER 18:19 → TELE1 22:14 → MEDSG1 23:40 → MED 10-29 04:54
PROVIDERS: ATTEND Student in an Organized Health Care Education/Training Program
PROC: 0FT44ZZ Resection of Gallbladder, Percutaneous Endoscopic Approach (ICD-10-PCS; principal; 2020-10-25)
PROC: 0FB04ZX Excision of Liver, Percutaneous Endoscopic Approach, Diagnostic (ICD-10-PCS; 2020-10-25)
DX: K80.00 Calculus of gallbladder with acute cholecystitis without obstruction (principal); E44.0 Moderate protein-calorie malnutrition; G82.20 Paraplegia, unspecified; I82.519 Chronic embolism and thrombosis of unspecified femoral vein; J98.11 Atelectasis; E88.09 Other disorders of plasma-protein metabolism, not elsewhere classified; G20 Parkinson's disease; I25.10 Atherosclerotic heart disease of native coronary artery without angina pectoris; Z20.822 Contact with and (suspected) exposure to COVID-19; I10 Essential (primary) hypertension; Z79.01 Long term (current) use of anticoagulants; Z95.828 Presence of other vascular implants and grafts; K82.8 Other specified diseases of gallbladder; N40.1 Benign prostatic hyperplasia with lower urinary tract symptoms; R33.8 Other retention of urine; J98.4 Other disorders of lung; Z86.711 Personal history of pulmonary embolism; R79.89 Other specified abnormal findings of blood chemistry; Z87.828 Personal history of other (healed) physical injury and trauma; K59.00 Constipation, unspecified
CPT/HCPCS: 36415; 71045-TC; 76705-TC; 78226; 80048-TC; 80053-TC; 80061-TC; 80076-TC; 83605-TC; 83690-TC; 83735-TC; 84100-TC; 84443-TC; 84484-TC; 85025-TC; 85730-TC; 87040-TC; 87081-TC; 88304-TC; 88307-TC; 88313-TC; 92526; 92611-TC; 93307-TC; 97112-TC; A6403; A9537; C9113; C9803; G0378; J1100; J1170; J1650; J1885; J2270; J2405; J2543; J2704; J3490; J7030; J7040; J7042; J7050; J7060; Q9967; U0003